=== PATIENT | male | born 1965 | race Caucasian/White ===

== ENCOUNTER 2017-07-07 22:23 | Inpatient (IN) | payer MEDICARE, OTHER ==
[~2017-07-07] VITALS: Ht 175.3 cm; Wt 77.2 kg
[~2017-07-07 22:23] MED LIST: CLON1TAB4 PO; DIAZ5TAB4 PO; PHEN-649 PO; PHEN100C9 PO; PROP120C2 PO; RISP3 PO
[2017-07-07] MEDS ORDERED: seizure PO (22:37)
[2017-07-07] MEDS ORDERED: PHENY100 PO (22:37)
[2017-07-07 23:06] LABS: BASOPHILS % (AUTO) 0.2 % (0.0-2.0); EOSINOPHILS % (AUTO) 0.3 % (1.0-6.0); HEMATOCRIT 43.4 % (41-53); HEMOGLOBIN 15.2 g/dL (13.5-17.5); LYMPHOCYTES # (AUTO) 0.7 K/uL (1.0-4.8); LYMPHOCYTES % (AUTO) 10.8 % (22.0-44.0); MEAN CORPUSCULAR HEMOGLOBIN 31.2 pg (26.0-34.0); MEAN CORPUSCULAR HGB CONC 35.1 G/dL (31.0-37.0); MEAN CORPUSCULAR VOLUME 89 fL (80-100); MONOCYTES # (AUTO) 0.7 K/uL (0.1-1.0); MONOCYTES % (AUTO) 10.1 % (2.0-9.0); NEUTROPHILS # (AUTO) 5.4 K/uL (1.8-7.7); NEUTROPHILS % (AUTO) 78.6 % (40.0-70.0); PLATELET COUNT (AUTO) 133 K/uL (150-450); RED BLOOD CELL COUNT(AUTO) 4.87 MIL/uL (4.50-5.90); RED CELL DISTRIBUTION WIDTH 13.8 % (11.5-14.5)
[2017-07-07 23:12] LABS: ANION GAP 7 mmol/L (8-16); CALCIUM, TOTAL 8.6 mg/dL (8.8-10.5); CARBON DIOXIDE 28 mmol/L (22-29); CHLORIDE 97 mmol/L (98-107); CREATININE 0.79 mg/dL (0.60-1.30); GLOMERULAR FILTR. RATE CALC > 60 mL/min (>60); GLUCOSE,RANDOM 129 mg/dL (70-110); SODIUM SERUM 132 mmol/L (136-145); UREA NITROGEN, BLOOD 15 mg/dL (7-18)
[2017-07-07 23:29] LABS: ALANINE AMINOTRANSFERASE 78 U/L (12-78); ALBUMIN 3.8 g/dL (3.4-5.0); ALKALINE PHOSPHATASE 163 U/L (46-116); ASPARTATE AMINOTRANSFERASE 39 U/L (15-37); BILIRUBIN,TOTAL 0.3 mg/dL (0.1-1.0); TOTAL PROTEIN, SERUM 7.9 g/dL (6.4-8.2)
[2017-07-07 23:39] LABS: PHENYTOIN (DILANTIN) 40.1 mcg/mL (10.0-20.0)
[2017-07-08] MEDS ORDERED: PERMETHRIN 5% 60 GM CREAM TP ONE (00:30)
[2017-07-08 00:41] LABS: AMPHET/METH SCREEN,URINE NEGATIVE (NEGATIVE); BARBITURATE SCREEN, URINE NEGATIVE (NEGATIVE); BENZODIAZEPINES SCREEN,URINE NEGATIVE (NEGATIVE); CANNABINOID SCREEN,URINE NEGATIVE (NEGATIVE); COCAINE SCREEN,URINE NEGATIVE (NEGATIVE); METHADONE SCREEN, URINE NEGATIVE (NEGATIVE); OPIATE SCREEN,URINE NEGATIVE (NEGATIVE)
[2017-07-08 00:44] LABS: PHENCYCLIDINE SCREEN,URINE NEGATIVE (NEGATIVE)
[2017-07-08] MEDS ORDERED: ACETAMINOPHEN 325 MG TABLET PO PRN (01:30)
[2017-07-08] MEDS ORDERED: SODIUM CHLORIDE 0.9% 1,000 ML IV ONE (01:30)
[2017-07-08] MEDS ORDERED: 0.9% SODIUM CHLORIDE 10 ML SYRINGE IVP PRN (01:30)
[2017-07-08] MEDS ORDERED: ONDANSETRON HCL 4 MG/2 ML VIAL IVP PRN (01:30)
[2017-07-08 03:05] VITALS: BP 130/86
[2017-07-08 04:48] VITALS: BP 140/89
[2017-07-08] MEDS ORDERED: PNEUMOCOCCAL VACCINE POLYVALENT 0.5 ML VIAL [PPSV23] IM ONE (06:00)
[2017-07-08 07:42] VITALS: BP 127/77
[2017-07-08] MEDS ORDERED: MAGNESIUM HYDROXIDE SUSPENSION 30 ML UDCUP PO PRN (08:00)
[2017-07-08] MEDS: DOCUSATE SODIUM 100 MG CAPSULE PO SCH ×2 (08:44→21:06)
[2017-07-08] MEDS: SODIUM CHLORIDE 0.9% 1,000 ML IV ONE ×2 (08:44→10:44)
[2017-07-08] MEDS: PANTOPRAZOLE SODIUM 40 MG DR TABLET PO SCH (08:44)
[2017-07-08] MEDS: HEPARIN SODIUM,PORCINE 5,000 UNITS/ML VIAL SQ SCH ×2 (08:45→15:35)
[2017-07-08 11:18] VITALS: BP 130/82
[2017-07-08 19:42] VITALS: BP 129/79
[2017-07-08 23:14] VITALS: BP 134/81
[2017-07-09] MEDS: HEPARIN SODIUM,PORCINE 5,000 UNITS/ML VIAL SQ SCH ×3 (01:18→15:27)
[2017-07-09 03:34] VITALS: BP 128/76
[2017-07-09 07:05] LABS: ANION GAP 5 mmol/L (8-16); CALCIUM, TOTAL 8.6 mg/dL (8.8-10.5); CARBON DIOXIDE 29 mmol/L (22-29); CHLORIDE 102 mmol/L (98-107); CREATININE 0.72 mg/dL (0.60-1.30); GLOMERULAR FILTR. RATE CALC > 60 mL/min (>60); GLUCOSE,RANDOM 82 mg/dL (70-110); POTASSIUM 4.3 mmol/L (3.5-5.1); SODIUM SERUM 136 mmol/L (136-145); UREA NITROGEN, BLOOD 13 mg/dL (7-18)
[2017-07-09 07:26] LABS: PHENYTOIN (DILANTIN) 39.5 mcg/mL (10.0-20.0)
[2017-07-09 07:43] VITALS: BP 150/90
[2017-07-09] MEDS: PANTOPRAZOLE SODIUM 40 MG DR TABLET PO SCH (08:07)
[2017-07-09] MEDS: DOCUSATE SODIUM 100 MG CAPSULE PO SCH ×2 (08:07→20:14)
[2017-07-09 11:07] VITALS: BP 146/90
[2017-07-09] MEDS ORDERED: LISI-661 PO (16:07)
[2017-07-09] MEDS ORDERED: VITAD1000 PO (16:07)
[2017-07-09] MEDS ORDERED: TEMA15CA PO (16:07)
[2017-07-09] MEDS ORDERED: LEVE500T53 PO (16:07)
[2017-07-09] MEDS ORDERED: PHENY100 PO (16:07)
[2017-07-09] MEDS ORDERED: BUSP15 PO (16:07)
[2017-07-09] MEDS ORDERED: LAMO25 PO (16:07)
[2017-07-09] MEDS ORDERED: RISP3 PO (16:07)
[2017-07-09] MEDS ORDERED: CARV3 PO (16:07)
[2017-07-09] MEDS ORDERED: ATOR40TA28 PO (16:07)
[2017-07-09 19:33] VITALS: BP 131/85
[2017-07-09 23:57] VITALS: BP 130/80
[2017-07-10] MEDS: HEPARIN SODIUM,PORCINE 5,000 UNITS/ML VIAL SQ SCH ×2 (00:28→08:17)
[2017-07-10 03:58] VITALS: BP 117/89
[2017-07-10 07:11] VITALS: BP 153/90
[2017-07-10] MEDS: PANTOPRAZOLE SODIUM 40 MG DR TABLET PO SCH (08:17)
[2017-07-10] MEDS: DOCUSATE SODIUM 100 MG CAPSULE PO SCH ×2 (08:17→21:54)
[2017-07-10 11:34] VITALS: BP 132/88
[2017-07-10] MEDS: ACETAMINOPHEN 325 MG TABLET PO PRN ×2 (11:48→21:54)
[2017-07-10] MEDS ORDERED: PERMETHRIN 5% 60 GM CREAM TP ONE (14:00)
[2017-07-10 20:19] VITALS: BP 129/83
[2017-07-10 23:20] VITALS: BP 144/91
[2017-07-11 05:47] VITALS: BP 139/85
[2017-07-11 07:13] VITALS: BP 139/88
[2017-07-11] MEDS: DOCUSATE SODIUM 100 MG CAPSULE PO SCH ×2 (10:45→20:58)
[2017-07-11] MEDS: PANTOPRAZOLE SODIUM 40 MG DR TABLET PO SCH (10:45)
[2017-07-11 11:22] VITALS: BP 135/98
[2017-07-11 15:55] VITALS: BP 156/74
[2017-07-11 19:20] VITALS: BP 124/83
[2017-07-11 23:02] VITALS: BP 140/76
[2017-07-12 04:55] VITALS: BP 136/90
[2017-07-12 08:08] VITALS: BP 105/73
[2017-07-12] MEDS: DOCUSATE SODIUM 100 MG CAPSULE PO SCH (09:09)
[2017-07-12] MEDS: PANTOPRAZOLE SODIUM 40 MG DR TABLET PO SCH (09:09)
[2017-07-12] MEDS ORDERED: PHEN100C23 PO (11:23)
[2017-07-12] MEDS ORDERED: DSS100 PO (11:23)
[2017-07-12 11:49] VITALS: BP 139/84
[2017-07-12] MEDS ORDERED: PHENYTOIN 100 MG/4 ML SUSPENSION UDCUP PO SCH (21:00)
== END 2017-07-12 12:40 | disposition home or self-care (01) | DRG 93 ==
LOC: EMS 22:24 → 5S 07-08 00:05 → 6N 07-10 13:45
PROVIDERS: ADMIT Internal Medicine; ATTEND Internal Medicine
PROC: 3E0234Z Introduction of Serum, Toxoid and Vaccine into Muscle, Percutaneous Approach (ICD-10-PCS; principal; 2017-07-08)
DX: G92 Toxic encephalopathy (principal); B86 Scabies; G40.909 Epilepsy, unspecified, not intractable, without status epilepticus; H55.09 Other forms of nystagmus; F17.210 Nicotine dependence, cigarettes, uncomplicated; R62.50 Unspecified lack of expected normal physiological development in childhood; T42.0X5A Adverse effect of hydantoin derivatives, initial encounter; Z88.0 Allergy status to penicillin; Z79.899 Other long term (current) drug therapy; Z23 Encounter for immunization
CPT/HCPCS: 90471; 93005; 99285; G0480; J1644; J7030